=== PATIENT | female | born 1950 | race African-American/Black ===

== ENCOUNTER 2017-10-26 13:37 | Inpatient (IN) ==
[2017-10-26] MEDS ORDERED: DEXAMETHASONE 10 MG/1 ML VIAL ONE (14:14)
[2017-10-26] MEDS ORDERED: KETOROLAC 60 MG/2 ML VIAL IM ONE (14:14)
[2017-10-26] MEDS ORDERED: ONDANSETRON 4 MG/2 ML VIAL IV STA (14:27)
[2017-10-26] MEDS ORDERED: SODIUM CHLORIDE 0.9% 1,000 ML IV STA (14:27)
[2017-10-26] MEDS ORDERED: FAMOTIDINE 20 MG/2 ML VIAL IV STA (14:27)
[2017-10-26] MEDS ORDERED: ONDANSETRON 4 MG/2 ML VIAL ONE (15:37)
[2017-10-26] MEDS ORDERED: FAMOTIDINE 20 MG/2 ML VIAL IV ONE (15:37)
[2017-10-26 15:45] LABS: Basophils % 0.1 % (0.0-0.8); Eosinophils # 0.1 10*3/uL (0.0-0.87); Hematocrit 29.9 VOL% (35.7-47.0); Hemoglobin 10.1 GM/DL (12.0-16.0); Immature Granulocytes % 0.5 %; Immature Granulocytes Absolute 0.04 #; Lymphocytes # 0.8 10*3/uL (1.4-4.0); Lymphocytes % 10.4 % (21.3-54.2); Mean Corpuscular HGB Conc 33.8 GM/DL (32-36); Mean Corpuscular Hemoglobin 29 PG (27-34); Mean Corpuscular Volume 84.2 FL (87-102); Mean Platelet Volume 9.7 FL (9.6-12.0); Monocytes # 0.8 10*3/uL (0.11-0.8); Monocytes % 10.5 % (1.7-12.7); Neutrophils # 5.9 10*3/uL (1.4-7.4); Neutrophils % 77.5 % (38.7-73.9); Platelet Count 299 T/CUMM (130-400); Red Blood Count 3.55 MC/CUMM (3.8-5.5); Red Cell Distribution Width 16.6 % (9.3-17.3); White Blood Count 7.6 T/CUMM (4-12)
[2017-10-26 16:03] LABS: Albumin 3.8 G/DL (3.4-5.0); Bilirubin,Total 0.6 MG/DL (0.2-1.0); Calcium 9.5 MG/DL (8.5-10.1); Osmolality,Calculated 275.5 MOS/KG (273-304); Potassium 4.3 MMOL/L (3.5-5.1); Total Protein 7.2 G/DL (6.4-8.3)
[2017-10-26 16:23] LABS: INR 1.1; PT Patient Result 11.2 SECS; Partial Thromboplastin Time 24.5 SECS (0-40)
[2017-10-26] MEDS ORDERED: ALBUTEROL 2.5 MG/3 ML NEB RESP TX PRN (17:15)
[2017-10-26] MEDS ORDERED: ZALEPLON 5 MG CAPSULE PO PRN (17:15)
[2017-10-26 17:58] LABS: Apearance,Urine CLEAR (Clear); Bilirubin,Urine Negative (Negative); Blood, Urine Negative (Negative); Glucose,Urine (UA) Negative (Negative); Ketones,Urine Negative (Negative); Nitrite,Urine Negative (Negative); Protein,Urine Negative; RBC,Urine <1 /HPF (0-4); Squamous Epithelial Cell,Urine Occasional /HPF (0-10); Urine Color Straw (Yellow); Urine Specific Gravity 1.014 (1.001-1.035); Urine Urobilinogen < 2.0 EU/DL (0.2-1.0)
[2017-10-26] MEDS: NYSTATIN 500,000 UNIT/5 ML UDCUP PO SCH (21:12)
[2017-10-27] MEDS ORDERED: amLODIPine 5 MG TABLET PO SCH (09:00)
[2017-10-27] MEDS ORDERED: PANTOPRAZOLE 40 MG TABLET PO SCH (09:00)
[2017-10-27] MEDS ORDERED: ATENOLOL 25 MG TABLET PO SCH (09:00)
[2017-10-27] MEDS: BACLOFEN 10 MG TABLET PO SCH (09:05)
[2017-10-27] MEDS: predniSONE 20 MG TABLET PO SCH (09:06)
[2017-10-27] MEDS: FLUCONAZOLE 100 MG TABLET PO SCH (09:06)
[2017-10-27] MEDS: FOLIC ACID 1 MG TABLET PO SCH (09:06)
[2017-10-27] MEDS: NYSTATIN 500,000 UNIT/5 ML UDCUP PO SCH ×4 (09:40→20:43)
[2017-10-27] MEDS ORDERED: HYDROmorphone 2 MG/1 ML VIAL IV PRN (11:43)
[2017-10-27 12:24] LABS: Basophils % 0.3 % (0.0-0.8); Eosinophils # 0.1 10*3/uL (0.0-0.87); Eosinophils % 0.8 % (0.00-10.9); Hematocrit 32.2 VOL% (35.7-47.0); Hemoglobin 10.7 GM/DL (12.0-16.0); Immature Granulocytes % 0.9 %; Immature Granulocytes Absolute 0.07 #; Lymphocytes # 0.6 10*3/uL (1.4-4.0); Lymphocytes % 7.5 % (21.3-54.2); Mean Corpuscular HGB Conc 33.2 GM/DL (32-36); Mean Corpuscular Hemoglobin 28 PG (27-34); Mean Corpuscular Volume 84.1 FL (87-102); Mean Platelet Volume 9.3 FL (9.6-12.0); Monocytes # 0.3 10*3/uL (0.11-0.8); Neutrophils # 6.7 10*3/uL (1.4-7.4); Neutrophils % 86.5 % (38.7-73.9); Platelet Count 340 T/CUMM (130-400); Red Blood Count 3.83 MC/CUMM (3.8-5.5); Red Cell Distribution Width 17.3 % (9.3-17.3); White Blood Count 7.8 T/CUMM (4-12)
[2017-10-27] MEDS ORDERED: POLYETHYLENE GLYCOL POWDER 255 GM BOTTLE PO ONE ×2 (12:40→18:01)
[2017-10-27] MEDS ORDERED: ACETAMINOPHEN 500 MG TABLET PO PRN (15:26)
[2017-10-27] MEDS: BISACODYL 5 MG TABLET PO SCH ×2 (15:29→23:14)
[2017-10-27] MEDS: PANTOPRAZOLE 40 MG TABLET PO SCH (20:44)
[2017-10-27] MEDS ORDERED: MAGNESIUM CITRATE 300 ML BOTTLE PO ONE (21:00)
[2017-10-28 05:48] LABS: Basophils % 0.1 % (0.0-0.8); Eosinophils % 0.5 % (0.00-10.9); Hematocrit 28.9 VOL% (35.7-47.0); Hemoglobin 9.5 GM/DL (12.0-16.0); Immature Granulocytes % 0.5 %; Immature Granulocytes Absolute 0.04 #; Lymphocytes # 0.9 10*3/uL (1.4-4.0); Lymphocytes % 11.3 % (21.3-54.2); Mean Corpuscular HGB Conc 32.9 GM/DL (32-36); Mean Corpuscular Hemoglobin 28 PG (27-34); Mean Corpuscular Volume 84.3 FL (87-102); Mean Platelet Volume 9.8 FL (9.6-12.0); Neutrophils # 6.1 10*3/uL (1.4-7.4); Neutrophils % 75.6 % (38.7-73.9); Platelet Count 299 T/CUMM (130-400); Red Blood Count 3.43 MC/CUMM (3.8-5.5); Red Cell Distribution Width 16.8 % (9.3-17.3)
[2017-10-28] MEDS: BISACODYL 5 MG TABLET PO SCH (06:35)
[2017-10-28] MEDS ORDERED: PROPOFOL 200 MG/20 ML VIAL IV ONE (14:03)
[2017-10-28] MEDS ORDERED: LIDOCAINE 2% 5 ML VIAL ONE (14:03)
[2017-10-28] MEDS ORDERED: PHENYLEPHRINE 1 MG/10 ML SYRINGE IV ONE (14:03)
[2017-10-28] MEDS: FOLIC ACID 1 MG TABLET PO SCH (14:07)
[2017-10-28] MEDS: FLUCONAZOLE 100 MG TABLET PO SCH (14:07)
[2017-10-28] MEDS: BACLOFEN 10 MG TABLET PO SCH (14:07)
[2017-10-28] MEDS: predniSONE 20 MG TABLET PO SCH (14:08)
[2017-10-28] MEDS: NYSTATIN 500,000 UNIT/5 ML UDCUP PO SCH (14:08)
[2017-10-28] MEDS: PANTOPRAZOLE 40 MG TABLET PO SCH (14:08)
[2017-10-28 15:28] VITALS: BP 101/69
== END 2017-10-28 16:02 | disposition home or self-care (01) | DRG 394 ==
LOC: N.ED 13:37 → SUATTDRO 16:40 → N.EDINP 16:40 → N.4E 17:36
PROVIDERS: ADMIT Hospitalist; ATTEND Internal Medicine
PROC: COLONBX (2017-10-28 09:35)

== ENCOUNTER 2021-02-22 03:21 | Observation (INO) ==
[2021-02-22] MEDS ORDERED: ONDANSETRON 4 MG/2 ML VIAL IV STA (03:53)
[2021-02-22 04:05] LABS: Basophils % 0.6 % (0.0-0.8); Eosinophils # 0.3 10*3/uL (0.0-0.87); Eosinophils % 4.6 % (0.00-10.9); Hematocrit 31.7 VOL% (35.7-47.0); Hemoglobin 9.7 GM/DL (12.0-16.0); Immature Granulocytes % 0.4 %; Immature Granulocytes Absolute 0.03 #; Lymphocytes # 1.4 10*3/uL (1.4-4.0); Lymphocytes % 20.9 % (21.3-54.2); Mean Corpuscular HGB Conc 30.6 GM/DL (32-36); Mean Corpuscular Volume 80.5 FL (87-102); Mean Platelet Volume 9.8 FL (9.6-12.0); Monocytes % 9.6 % (1.7-12.7); Neutrophils % 63.9 % (38.7-73.9); Platelet Count 406 T/CUMM (130-400); Red Blood Count 3.94 MC/CUMM (3.8-5.5); Red Cell Distribution Width 18.3 % (9.3-17.3); White Blood Count 6.8 T/CUMM (4-12)
[2021-02-22 04:14] LABS: INR 1.1; PT Patient Result 11.3 SECS (9.8-11.9)
[2021-02-22 04:27] LABS: Alanine Aminotransferase 10 U/L (13-56); Albumin 3.7 G/DL (3.4-5.0); Alkaline Phosphatase 94 U/L (45-117); Aspartate Amino Transferase 10 U/L (0-37); Blood Urea Nitrogen 13 MG/DL (7-18); Calcium 9.4 MG/DL (8.5-10.1); Carbon Dioxide 28 MMOL/L (21-32); Estimated Glom Filtration Rate 77 ML/MIN; Glucose 91 MG/DL (74-106); Osmolality,Calculated 278.4 MOS/KG (273-304); Potassium 3.8 MMOL/L (3.5-5.1); Sodium 140 MMOL/L (136-145); Total Protein 7.8 G/DL (6.4-8.2)
[2021-02-22] MEDS ORDERED: MEPERIDINE 25 MG/1 ML VIAL IV STA (04:33)
[2021-02-22 04:34] LABS: Bacteria,Urine Occasional /HPF (Few); Bilirubin,Urine Negative (Negative); Blood, Urine Negative (Negative); Glucose,Urine (UA) Negative (Negative); Ketones,Urine Negative (Negative); Mucus,Urine Occasional /LPF (Occasional); Nitrite,Urine Negative (Negative); Protein,Urine Negative; RBC,Urine 5 /HPF (0-4); Squamous Epithelial Cell,Urine Occasional /HPF (0-10); Urine Appearance CLEAR (Clear); Urine Color Straw (Yellow); Urine Urobilinogen < 2.0 EU/DL (0.2-1.0); WBC,Urine <1 /HPF (0-6)
[2021-02-22 04:39] LABS: Barbiturates Screen,Urine Negative (Negative); Benzodiazepines Screen,Urine Negative (Negative); Cannabinoid Screen,Urine Negative (Negative); Opiate Screen,Urine Negative (Negative); Phencyclidine Screen,Urine Negative (Negative)
[2021-02-22] MEDS ORDERED: SODIUM CHLORIDE 0.9% 1,000 ML IV STA (04:52)
[2021-02-22] MEDS ORDERED: DEXTROSE 50% 25 GM/50 ML VIAL IV PRN (06:21)
[2021-02-22] MEDS ORDERED: ONDANSETRON 4 MG/2 ML VIAL IV PRN (06:21)
[2021-02-22] MEDS ORDERED: NICOTINE 21 MG/24 HR PATCH TRANSDERM PRN (06:21)
[2021-02-22] MEDS ORDERED: GLUCAGON 1 MG VIAL IM PRN (06:21)
[2021-02-22 07:25] LABS: Risk Ratio 2.24; VLDL CHOLESTEROL 17.4 MG/DL
[2021-02-22] MEDS: INSULIN REGULAR 100 UNIT/ML SUBCUT SCH ×4 (07:28→21:08)
[2021-02-22] MEDS: APIXABAN 5 MG TABLET PO SCH ×2 (10:40→21:39)
[2021-02-22] MEDS ORDERED: ACETAMINOPHEN 325 MG TABLET PO PRN (20:15)
[2021-02-22] MEDS ORDERED: ZALEPLON 5 MG CAPSULE PO ONE (21:19)
[2021-02-23 05:55] LABS: Basophils % 0.7 % (0.0-0.8); Eosinophils # 0.3 10*3/uL (0.0-0.87); Eosinophils % 4.6 % (0.00-10.9); Hematocrit 29.8 VOL% (35.7-47.0); Hemoglobin 9.2 GM/DL (12.0-16.0); Immature Granulocytes % 0.5 %; Immature Granulocytes Absolute 0.03 #; Lymphocytes # 1.4 10*3/uL (1.4-4.0); Lymphocytes % 24.4 % (21.3-54.2); Mean Corpuscular HGB Conc 30.9 GM/DL (32-36); Mean Corpuscular Volume 80.5 FL (87-102); Mean Platelet Volume 9.5 FL (9.6-12.0); Monocytes % 11.6 % (1.7-12.7); Neutrophils % 58.2 % (38.7-73.9); Platelet Count 365 T/CUMM (130-400); Red Cell Distribution Width 18.3 % (9.3-17.3); White Blood Count 5.9 T/CUMM (4-12)
[2021-02-23 06:23] LABS: Calcium 9.4 MG/DL (8.5-10.1); Osmolality,Calculated 279.3 MOS/KG (273-304); Potassium 3.9 MMOL/L (3.5-5.1)
[2021-02-23] MEDS: INSULIN REGULAR 100 UNIT/ML SUBCUT SCH ×2 (08:34→12:59)
[2021-02-23] MEDS: APIXABAN 5 MG TABLET PO SCH (08:35)
[2021-02-23 12:29] VITALS: BP 126/59
[2021-02-23] MEDS ORDERED: APIXABAN 5 MG TABLET PO SCH (21:00)
== END 2021-02-23 17:10 | disposition home health service (06) ==
LOC: SUATTDRO → EDUNIT# → N.EDINP 03:21 → N.ED 03:21 → N.4E 07:50
PROVIDERS: ADMIT Hospitalist; ATTEND Hospitalist